=== PATIENT | female | born 1970 | race Caucasian/White ===

== ENCOUNTER 2016-09-29 10:28 | Emergency (ER) | payer OTHER ==
[2016-09-29] MEDS ORDERED: NS 1,000 ML IV ONE (10:52)
[2016-09-29 10:58] LABS: % IMMATURE GRANULYOCYTES 0.4 % (0.0-1.1); ABSOLUTE IMMATURE GRANULOCYTES 0.03 10^3/uL (0.00-0.10); ADD DIFF? NO; ADD MORPH? NO; ADD SCAN? NO; ATYPICAL LYMPHOCYTE FLAG 0 (0-99); FRAGMENT RBC FLAG 0 (0-99); HEMATOCRIT 44.1 % (38.0-47.0); HEMOGLOBIN 14.9 g/dL (12.6-16.3); LEFT SHIFT FLG 0 (0-99); LIPEMIA HEMOLYSIS FLAG 90 (0-99); MEAN CELL HEMOGLOBIN 29.8 pg (27.9-34.1); MEAN CELL HEMOGLOBIN CONCENTR. 33.8 g/dL (32.4-36.7); MEAN CELL VOLUME 88.2 fL (81.5-99.8); MEAN PLATELET VOLUME 10.4 fL (8.7-11.7); PLATELET CLUMPS FLAG 10 (0-99); PLATELET COUNT 292 10^3/uL (150-400); RED CELL DISTRIBUTION WIDTH 13.9 % (11.5-15.2)
[2016-09-29 11:16] LABS: ALANINE AMINOTRANSFERASE 33 IU/L (9-52); ALBUMIN 4.5 g/dL (3.5-5.0); ALKALINE PHOSPHATASE 46 IU/L (38-126); ANION GAP 13 mEq/L (8-16); ASPARTATE AMINOTRANSFERASE 18 IU/L (14-46); BILIRUBIN,TOTAL 0.7 mg/dL (0.1-1.4); CALCIUM 10.1 mg/dL (8.5-10.4); CARBON DIOXIDE 26 mEq/l (22-31); CHLORIDE 103 mEq/L (97-110); CREATININE 0.7 mg/dL (0.6-1.0); GLOMERULAR FILTRATION RATE > 60; GLUCOSE 98 mg/dL (70-100); POTASSIUM 4.2 mEq/L (3.5-5.2); SODIUM 142 mEq/L (134-144); TOTAL PROTEIN 7.3 g/dL (6.3-8.2)
[2016-09-29] MEDS ORDERED: ONDANSETRON 4 MG/2 ML VIAL IVP ONE (12:40)
[2016-09-29] MEDS ORDERED: MECLIZINE HCL 25 MG TAB PO ONE (12:40)
--- NOTE | 2016-09-29 12:42 | EDPHY ---
H & P Stated Complaint: Positional vertigo since yesterday,worse today, + nausea Source: Patient Exam Limitations: No limitations - Personal History LMP (Females 10-55): Now Current Tetanus Diphtheria and Acellular Pertussis (TDAP): Yes - Medical/Surgical History Other PMH: vertigo, anorexia - Social History Smoking Status: Never smoked HPI/ROS: CHIEF COMPLAINT: Dizziness, vomiting, vertigo HISTORY OF PRESENT ILLNESS: Patient complains of dizziness and vomiting. This started abruptly overnight. Consistent with her previous episodes of vertigo but more severe. No headache. No chest pain. No loss of conscious. No unilateral complaints. No headache. No loss of hearing. No tinnitus. Significantly worse with change of position and movement. Minimal improvement when laying down and holding still. No abdominal discomfort. No other associated complaints or modifying factors. REVIEW OF SYSTEMS: Ten systems reviewed and are negative unless otherwise noted in the HPI PAST MEDICAL HISTORY: Vertigo, anorexia SOCIAL HISTORY: Nonsmoker. Lives with her family in [place], currently visiting [place]. FAMILY HISTORY: Noncontributory EXAMINATION General Appearance: Alert, no distress Head: normocephalic, atraumatic Eyes: Pupils equal and round, no conjunctival pallor or injection. Horizontal nystagmus. No vertical nystagmus. EOMs intact ENT, Mouth: Mucous membranes moist. Ears are clear Neck: Normal inspection, supple, non-tender Respiratory: Lungs are clear to auscultation Cardiovascular: Regular rate and rhythm. No murmur. Gastrointestinal: Abdomen is soft and nontender Back: non-tender, no bony abnormalities Neurological: A&O, nonfocal, normal gait Skin: Warm and dry, no rash Extremities: Nontender, no pedal edema Psychiatric: Mood and affect normal DIFFERENTIAL DIAGNOSES: Including but not limited to vertigo, dehydration, near syncope, electrolyte disturbance, cardiac dysrhythmia MDM: 12:40 p.m. Dizziness and vomiting that is consistent with vertigo. She does have a previous history of vertigo for this is more severe. No chest pain. No syncope. No unilateral complaints. No headache. Vital signs are within normal limits. I have ordered Zofran and meclizine and will re-evaluate. 1:20 p.m. I have re-evaluated the patient. She is feeling much better still nauseated but no vomiting. I will recheck 2:30 p.m. I have re-evaluated the patient. She still feeling very nauseated. She feels that she cannot ambulate at this time. I will order Valium and re-evaluate 3:40 p.m. I have re-evaluated the patient. She is feeling significantly better on the Valium. No longer nauseated. She will ambulate. Plan for discharge home with Zofran, meclizine and Valium. She is supposed to fly back home on Wednesday. I informed her that it is purely symptomatic. She is feeling better she may fly home. If she is not she should return to the emergency department for re- evaluation. She is discharged home in stable condition. SUPERVISION: Patient was evaluated in conjunction with the supervising physician. Please see their note for details. (Duncan Ferguson) Constitutional: Initial Vital Signs Temperature (C) 37.2 C 09/29/16 10:30 Heart Rate 94 09/29/16 10:30 Respiratory Rate 18 09/29/16 10:30 Blood Pressure 118/84 H 09/29/16 10:30 O2 Sat (%) 96 09/29/16 10:30 O2 Delivery Mode Room Air O2 (L/minute) 2 Allergies/Adverse Reactions: No Known Allergies Allergy (Unverified 09/29/16 10:37) Home Medications: Medication Instructions Recorded Diazepam [Valium 5 MG (*)] 5 mg PO TID PRN #15 tab 09/29/16 Meclizine HCl [Meclizine HCl 25 mg 25 mg PO BID PRN #10 tab 09/29/16 (RX,OTC)] Ondansetron Odt [Zofran Odt 4 mg 4 mg PO Q6 PRN #12 tab 09/29/16 (*)] Medical Decision Making ED Course/Re-evaluation: The patient was evaluated and managed by the physician hearing aid assistant. I have reviewed this chart and I agree with the findings and plan of care as documented , as indicated by my signature. I am the secondary supervising physician. ( Claudine Nick) - Data Points Laboratory Results: Laboratory Results 09/29/16 10:49 09/29/16 10:49 Medications Given: Discontinued Medications Diazepam (Valium Injection) 5 mg IVP EDNOW ONE Stop: 09/29/16 14:32 Last Admin: 09/29/16 14:55 Dose: 5 mg Sodium Chloride (Ns) 1,000 mls @ 0 mls/hr IV EDNOW ONE; Wide Open PRN Reason: Protocol Stop: 09/29/16 10:53 Last Admin: 09/29/16 10:57 Dose: 1,000 mls Meclizine HCl (Meclizine Hcl) 25 mg PO EDNOW ONE Stop: 09/29/16 12:41 Last Admin: 09/29/16 12:49 Dose: 25 mg Ondansetron HCl (Zofran) 4 mg IVP EDNOW ONE Stop: 09/29/16 12:41 Last Admin: 09/29/16 12:49 Dose: 4 mg Departure - Departure Disposition: Home, Routine, Self-Care Clinical Impression: Vertigo Condition: Good Instructions: Vertigo (ED) Additional Instructions: 1. Medications as prescribed as needed 2. Follow up with primary care physician or ENT physician upon return home 3. Return to ER for worsening symptoms, loss of hearing, fever, headache Referrals: [facility] [Other] - As per Instructions Handy Turcios MD [Medical Doctor] - As per Instructions Stand Alone Forms: Airline Excuse Prescriptions: Diazepam [Valium 5 MG (*)] 5 mg PO TID PRN #15 tab PRN Reason: Dizziness Meclizine HCl [Meclizine HCl 25 mg (RX,OTC)] 25 mg PO BID PRN #10 tab PRN Reason: Dizziness Ondansetron Odt [Zofran Odt 4 mg (*)] 4 mg PO Q6 PRN #12 tab PRN Reason: Nausea/Vomiting, Use 1st
--- NOTE | 2016-09-29 12:51 | CPEKG ---
Heart Rate: 69 RR Interval: 870 P-R Interval: 136 QRSD Interval: 66 QT Interval: 388 QTC Interval: 416 P [place]: 43 QRS [place]: 62 T Wave [place]: 31 EKG Severity - BORDERLINE ECG - EKG Impression: SINUS RHYTHM EKG Impression: ATRIAL PREMATURE COMPLEX EKG Impression: BORDERLINE T ABNORMALITIES, ANTERIOR LEADS Electronically Signed By: Dillan Lazaro 01-Oct-2016 15:31:25
[2016-09-29 13:48] VITALS: RESP 20
[2016-09-29] MEDS ORDERED: DIAZEPAM 10 MG/2 ML SYR IVP ONE (14:31)
[2016-09-29 16:07] VITALS: BP 105/66; PULSE 64; TEMP 98.1; O2SAT 94
== END 2016-09-29 16:09 | disposition home or self-care (01) ==
DX: R42 Dizziness and giddiness (principal)
CPT/HCPCS: 96374; J2405